=== PATIENT | male | born 1940 | race Caucasian/White ===

== ENCOUNTER 2016-11-03 13:27 | Day surgery (SDC) | payer MEDICARE ==
[~2016-11-03] VITALS: Ht 172.7 cm; Wt 98.0 kg
[~2016-11-03 13:27] MED LIST: ASPI-973 PO; FERR-83 PO; LIP40 PO; LISI-567 PO; OMEP20CA11 PO; SILD20TA PO; Sodium Chloride LOK Flush 10 mL Syringe IV PRN; TAMS0.4C98 PO; fentaNYL-PF 50 mCg/mL 2 mL Inj IVPUSH PRN
[2016-11-03 13:47] VITALS: BP 162/86; PULSE 72; RESP 12; O2SAT 97
[2016-11-03] MEDS: 0.9% Sodium Chloride 1,000 ML IV SCH ×2 (14:39→14:57)
[2016-11-03 15:03] VITALS: BP 139/77; PULSE 66; RESP 16; O2SAT 93
[2016-11-03 15:13] VITALS: BP 99/68; PULSE 68; RESP 16; O2SAT 95
[2016-11-03 15:23] VITALS: BP 108/71; PULSE 70; RESP 16; O2SAT 95
--- NOTE | 2016-11-03 15:29 | ENDO ---
[address] [address] ENDOSCOPY PROCEDURE PATIENT: BRUNO VAZ : 1940 MR#: [id number] ADMIT: 11/03/2016 JOB ID: [id number] DATE: 11/03/2016 PRIMARY PROVIDER: Abel Bravo MD PROCEDURE: Esophagogastroduodenoscopy with biopsies. INDICATIONS: A 75-year-old male with Suresh's returning for surveillance. EQUIPMENT: GIF H 180 J. SEDATION: 1. 4 mg Versed. 2. 75 mcg fentanyl. COMPLICATIONS: None identified. PROCEDURAL INFORMATION: After the risks and benefits were explained, written and verbal informed consent was obtained. The patient was brought into the endoscopy suite and placed into the left lateral decubitus position. Sedation was achieved using the above-stated medications with the addition of oxygen via nasal cannula. The scope was introduced into the mouth through the bite block, and advanced to the second portion of the duodenum. The scope was slowly withdrawn to carefully examine the mucosa for any defects or lesions. Retroflexed views were accomplished in the stomach. The stomach was decompressed. The scope removed from the patient who tolerated the procedure well. FINDINGS: 1. Duodenum: No pathology identified from the bulb through to the second portion. 2. Stomach: The patient had some mild scattered erosive features and benign appearing gastric polyp was sampled for histopathologic analysis (also for exclusion of H pylori). Otherwise retroflexed views of the LES were unremarkable. 3. Esophagus: The squamocolumnar junction correlated with the top of the gastric folds. The GE junction was at approximately 33 cm from the incisors. The top margin of the Suresh's was at approximately 30 cm from the incisors. This would be judged a C0 M3 segment, mostly through the 12 o'clock to 3 o'clock and 6 o'clock location. No nodularity. No active ulcerations. No high risk features appreciated visually. Three biopsies were taken from this segment of Suresh's. ENDOSCOPIC DIAGNOSIS: 1. C0 M3 Suresh's. 2. Hiatal hernia. 3. Gastric polyp. 4. Gastropathy. RECOMMENDATIONS: 1. Await histopathology. 2. Repeat EGD in three years if no dysplasia is confirmed. 3. Continue anti-reflux therapy.
--- NOTE | 2016-11-05 15:38 | PATH ---
SURGICAL PATHOLOGY Attending Physician:Ella Esquivel CASE STATUS: Signed Out PATIENT NAME: BRUNO VAZ PID: [id number] : 1940 DATE COLLECTED:11/03/2016 00:00 SPECIMEN: 1: Esophagus, Biopsy 2: Stomach, Polyp, Biopsy CLINICAL HISTORY: 1). DISTAL ESOPHAGUS BIOPSY 2). GASTRIC POLYP BIOPSY FINAL DIAGNOSIS: 1. 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 Negative for dysplasia and malignancy. 2. Gastric Polyp Biopsy: Fundic gland polyp. Negative for intestinal metaplasia. Negative for dysplasia and malignancy. ICD10 K22.70; K31.7 GROSS DESCRIPTION: The specimen is received in two formalin filled containers labeled with the patient's name. 1). The specimen sublabeled "distal esophagus" and consists of 2 portions of tissue which aggregate to 0.3 x 0.3 x 0.2 CM. The specimen is entirely submitted in cassette 1A. 2). The specimen is sublabeled "gastric" and consists of a 0.3 x 0.3 x 0.3 CM portion of tissue which is entirely submitted in cassette 2A. 11/04/2016 DAC MICRO DESCRIPTION: Please see diagnosis. ICD-9 CODES: CPT CODES: 1: 17732 2: 79484, 64103 PROCEDURE/ADDENDA: Immunohistochemistry SPI Interpretation {Not Entered} Results-Comments Addendum issued to report the results of immunohistochemistry, requested by the clinician. The final diagnosis is unchanged. 2. An immunohistochemical stain for Helicobacter is NEGATIVE. A control stain showed appropriate reactivity. This test was developed and its performance characteristics determined by [facility]. It has not been cleared or approved by the [place]. Food and Drug Administration. The FDA has determined that such clearance or approval is not necessary. This test is used for clinical purposes. It should not be regarded as investigational or for research. Electronically Signed Out Rebecca Campos MD Electronically Signed Out Rosalind Heath MD [facility] [address], [place] [address] Technical component performed at [facility], [address], [address]
== END 2016-11-03 23:59 | disposition home or self-care (01) ==
LOC: END 13:27
PROVIDERS: ATTEND Internal Medicine Gastroenterology
DX: K22.719 Barrett's esophagus with dysplasia, unspecified (principal); K31.7 Polyp of stomach and duodenum; K44.9 Diaphragmatic hernia without obstruction or gangrene; K21.9 Gastro-esophageal reflux disease without esophagitis; N40.0 Benign prostatic hyperplasia without lower urinary tract symptoms; I10 Essential (primary) hypertension; R73.03 Prediabetes; E78.5 Hyperlipidemia, unspecified; Z79.01 Long term (current) use of anticoagulants
CPT/HCPCS: 43239; 88305; G0500; J7030